=== PATIENT | female | born 1985 | race Caucasian/White ===

== ENCOUNTER 2018-01-19 09:31 | Emergency (ER) | payer OTHER ==
--- NOTE | 2018-01-19 14:53 | OBHP ---
Datetime: 01/19/2018 14:48 IP Adm Impression: , intrauterine IP Admit Plan: Observation/Evaluation; Discharge home Admit Comment, IP Provider: Patient is a @ 25 wks with vaginal spotting after intercourse. N o leaking, no other bleeding, +FM, no ctxns. Previous x 2, otherwise no other antepartum issues, no medical problems, no allergies, no medications except vitamins. On speculum exam, no vag inal bleeding noted. +FHR = 150s mod bhavesh, +accels, no contractions. Chorio and labor ruled out. Nichelle nt discharged out with labor precautions Pelvic Type - PN: Adequate Extremities - PN: Normal Abdomen - PN: Normal Back - PN: Normal Breast - PN: Normal Lungs - PN: Normal Heart - PN: Normal Thyroid - PN: Normal Neurologic - PN: Normal HEENT - PN: Normal General - PN: Normal FHR - Baseline A Provider: 145 Contraction Comments Provider: none Vital Signs Provider: Reviewed; Within Normal Limits IP Chief Complaint: Vaginal bleeding NICHD Accel Fetus A IP Provider: [id number] NICHD Decel Fetus A IP Provider: None Dilatation, Provider: closed Genitourinary Exam: Normal DTRs - PN: Normal
--- NOTE | 2018-01-19 14:53 | OBDCSUM ---
Datetime: 01/19/2018 10:45 Discharged to, Provider: Home Follow up at, Provider: Dr Maria Luz Heredia Instr Activity: Normal activity Disch Instr Diet: Regular Discharge Instructions, Provider: Routine instructions given Discharge Time: 01/19/2018 10:46 Follow up in weeks, Provider: enedina Heredia Referrals: None Contraception discussed, Prov: Yes Discharge Diagnosis Prov Other: vaginal bleeding
[2018-01-19 15:25] VITALS: PULSE 93; RESP 16; TEMP 98.4; O2SAT 100
== END 2018-01-19 11:00 | disposition home or self-care (01) ==
LOC: H.EROB2 09:31 → H.L&D 09:54 → H.EROB2 11:00
DX: O26.852 Spotting complicating pregnancy, second trimester (principal); Z3A.25 25 weeks gestation of pregnancy

== ENCOUNTER 2018-05-09 19:27 | Inpatient (IN) | payer OTHER ==
[2018-05-09 20:02] VITALS: BMI 32.5
[2018-05-09 21:10] VITALS: RESP 20; O2SAT 100
[2018-05-09 21:12] LABS: BASO % 0.3 % (0.0-2.0); EOS % 0.2 % (0.0-4.0); HEMOGLOBIN 12.3 g/dL (12.0-16.0); LYMPH # 1.5 K/uL (1.0-4.3); LYMPH % 13.6 % (20.0-40.0); MEAN CELL VOLUME 90.8 fl (81.0-99.0); MEAN CORPUSCULAR HEMOGLOBIN 30.8 pg (27.0-31.0); MEAN CORPUSCULAR HGB CONC 33.9 g/dL (33.0-37.0); MEAN PLATELET VOLUME 8.7 fl (7.2-11.7); MONO # 0.9 K/uL (0.0-0.8); NEUT # 8.5 K/uL (1.8-7.0); NEUT % 77.9 % (50.0-75.0); NRBC % 0.1 % (0.0-0.0); RBC 3.99 Mil/uL (3.80-5.20); RED CELL DISTRIBUTION WIDTH 13.8 % (11.5-14.5); WHITE BLOOD COUNT 10.9 K/uL (4.8-10.8)
--- NOTE | 2018-05-09 21:22 | OBHP ---
Datetime: 05/09/2018 21:01 IP Adm Impression: Term, intrauterine ; No Active Labor IP Chief Complaint Other: Post EDC IP Adm Impression Other: Induction of labor IP Admit Plan: Admit to unit; Initiate labor induction protocol Admit Comment, IP Provider: 33yo with IUP at 40w6d reporting here today for IOL secondary to po st EDC. Patient reports of occasional mild pelvic contractions but denies VB or LOF. Patient of Dr Saleh with uncomplicated course. GBS- Positive. PMHx: Nil of Note PSHx: None Allergies: NKDA SHx: No Toxic habits. O: Chest: CTA B/L Heart: RRR Abd: Soft, NT bs- present FHR- Category 1 SVE: Asessment: IUP at 40w6d Post EDC for IOL NST ReactivePlan: Admit to LND Cervidil for cervical ripening Penicillin for GBS prophylaxis May have epidural at the onset of labor. Pelvic Type - PN: Adequate Extremities - PN: Normal Abdomen - PN: Normal Back - PN: Normal Breast - PN: Normal Lungs - PN: Normal Heart - PN: Normal Thyroid - PN: Normal Neurologic - PN: Normal HEENT - PN: Normal General - PN: Normal Presentation-Admit: Vertex FHR - Baseline A Provider: 130 Gestation - Est Wks by US: 40.6 EGA AdmitDate IP: 40.6 Vital Signs Provider: Reviewed IP Chief Complaint: Maternal discomfort NICHD Variability Prov Fetus A: Moderate 6-25bpm NICHD Accel Fetus A IP Provider: 15X15 FHR Category Provider Fetus A: Category I NICHD Decel Fetus A IP Provider: None Genitourinary Exam: Normal DTRs - PN: Normal
[2018-05-10] MEDS: Lactated Ringer's 1,000 ML IV SCH ×4 (13:30→21:05)
[2018-05-10] MEDS ORDERED: Penicillin G 5 Million Unit Vial IVPB ONE (15:10)
[2018-05-10] MEDS ORDERED: Oxytocin 30 UNIT 30 UNITS/500 ML BAG IV ONE ×2 (17:07→18:56)
[2018-05-10] MEDS ORDERED: OXYTOCIN/0.9 % NS 20 UNIT/1,000 ML BAG IV SCH (17:15)
[2018-05-10] MEDS ORDERED: Lactated Ringer's 1,000 ML IV SCH (18:30)
[2018-05-10] MEDS ORDERED: Fentanyl/Bupivacaine HCl 250 ML EPI ONE (20:00)
[2018-05-10] MEDS ORDERED: Lidocaine 1% MPF (30 ml) Inj ONE (21:47)
--- NOTE | 2018-05-10 22:51 | OBDS ---
DELIVERY PERSONNEL Delivery Doctor: Brianne Casey MD Trust Clerk: Sujata Conti RN MATERNAL INFORMATION Delivery Anesthesia: Epidural Medications in Delivery: Lidocaine 30ml Placenta Cultured: No Maternal Complications: None Provider Comments: Uncomplicated spontaneous vaginal delivery od a viable female with BW of 3 300g and scores of 9 and 9.The baby was having non reassuring status and a kiwi vacuum wa s applied with a full dilatation,with a station of +4. Baby was delivered after 2 pulls with contract ions without a pop. Baby was delivered over a 2nd degree laceration which was repaired with vicryl sutures under epidu ral and local anesthesia and with good cosmesis. EBL- 350mls Patient tolerated the procedure well. LABOR SUMMARY EDC: 05/03/2018 00:00 No. Babies in Womb: 1 Attempted: No Labor Anesthesia: Epidural LABOR INFORMATION Reason for Induction: Postterm Cervical Ripening Agents: Cytotec 50 mcg PO given as ordered. Oxytocin: N/A Group B Beta Strep: Positive Antibiotics # of Doses: 2 Antibiotics Time of Last Dose: 1944 Steroids Given: None Reason Steroids Not Administered: Not Applicable MEMBRANES Membranes Rupture Method: Artificial Rupture of Membranes: 05/10/2018 17:29 Length of Rupture (hrs): 4.07 Amniotic Fluid Color: Clear Amniotic Fluid Amount: Moderate Amniotic Fluid Odor: Normal STAGES OF LABOR Stage 3 hrs: 0 Stage 3 min: 6 VAGINAL DELIVERY Episiotomy: None Laceration Extension: Second Degree Laceration Type: Perineal Laceration Repair Note: Baby was delivered over a 2nd degree laceration which was repaired with vicr yl sutures under epidural and local anesthesia and with good cosmesis BABY A INFORMATION Infant Delivery Date/Time: 05/10/2018 21:33 Method of Delivery: Vaginal Born in Route : No : N/A Forceps: N/A Vacuum Extraction: Successful Shoulder Dystocia : No SHOULDER DYSTOCIA BABY A Delivery Date/Time: 05/10/2018 21:33 PRESENTATION/POSITION BABY A Presentation: Cephalic Cephalic Presentation: Left occipital posterior Breech Presentation: N/A PLACENTA INFORMATION BABY A Placenta Delivery Time : 05/10/2018 21:39 Placenta Method of Delivery: Spontaneous Placenta Status: Delivered SCORES BABY A Heart Rate 1 min: >100 bpm Resp Effort 1 min: Good Cry Reflex Irritability 1 min: Cough or Sneeze or Pulls Away Muscle Tone 1 min: Active Motion Color 1 min: Body [place], Extremities Blue Resuscitation Effort 1 min: N/A SCORE 1 MIN: 9 Heart Rate 5 min: >100 bpm Resp Effort 5 min: Good Cry Reflex Irritability 5 min: Cough or Sneeze or Pulls Away Muscle Tone 5 min: Active Motion Color 5 min: Body [place], Extremities Blue Resuscitation Effort 5 min: N/A SCORE 5 MIN: 9 INFORMATION BABY A Gestational Age at Delivery: 41.0 Gestational Status: Post-term Outcome : Liveborn Infant Condition : Stable Sex: Female IDENTIFICATION/MEDS BABY A ID Band Number: [id number] ID Band Location: Left Leg; Left Arm WEIGHT/LENGTH BABY A Infant Birthweight (gms): 3300 Weight (lb): 7 Weight (oz): 4 CORD INFORMATION BABY A No. Cord Vessels: 3 Nuchal Cord : N/A Nuchal Cord Other: n/a True Knot: n/a Cord pH Baby Arterial: n/a Infant Cord pH Baby Venous: n/a Cord Blood Taken: Yes Banking/Donate Info: n/a Suction: Mouth; Nose
[2018-05-10] MEDS ORDERED: Benzocaine/Menthol SPRAY TOP PRN (23:08)
[2018-05-10] MEDS ORDERED: Oxycodone/Acetaminophen 5/325 mg Tab PO PRN (23:08)
[2018-05-11] MEDS ORDERED: Oxycodone/Acetaminophen 5/325 mg Tab PO PRN (01:35)
[2018-05-11] MEDS ORDERED: Benzocaine/Menthol SPRAY TOP PRN (01:35)
[2018-05-11 06:24] LABS: BASO % 0.1 % (0.0-2.0); HEMOGLOBIN 11.6 g/dL (12.0-16.0); LYMPH % 6.9 % (20.0-40.0); MEAN CELL VOLUME 90.2 fl (81.0-99.0); MEAN CORPUSCULAR HEMOGLOBIN 31.3 pg (27.0-31.0); MEAN CORPUSCULAR HGB CONC 34.7 g/dL (33.0-37.0); MEAN PLATELET VOLUME 8.6 fl (7.2-11.7); MONO % 6.8 % (0.0-10.0); NEUT # 12.6 K/uL (1.8-7.0); NEUT % 86.2 % (50.0-75.0); PLATELET COUNT 242 K/uL (130-400); RED CELL DISTRIBUTION WIDTH 13.7 % (11.5-14.5); WHITE BLOOD COUNT 14.6 K/uL (4.8-10.8)
--- NOTE | 2018-05-11 07:37 | OBPN ---
Datetime: 05/09/2018 21:01 IP Progress Impression: Normal progression of labor; Reassuring heart rate IP Procedures: Sterile Vag Exam IP Progress Plan: Continue present management; Antibiotic therapy Membranes, Provider: Intact FHR - Baseline A Provider: 130 Gestation - Est Wks by US: 40.6 Presentation-Admit: Vertex IP Progress Note Comment: Sterile VE Reassuring FHR Normal progression YBecerra PGY 2 Attending Note: Patient was discussed with resident and I agree with the above assessment. Vital Signs Provider: Reviewed NICHD Accel Fetus A IP Provider: 15X15 FHR Category Provider Fetus A: Category I NICHD Variability Prov Fetus A: Moderate 6-25bpm Dilatation, Provider: 3-4 Effacement, Provider: 70 Station, Provider: -2 NICHD Decel Fetus A IP Provider: None Datetime: 01/19/2018 14:48 Contraction Comments Provider: none
[2018-05-11 09:28] LABS: BASOPHIL 1 % (0-2); HYPOCHROMIC SLIGHT; LYMPHOCYTE 13 % (20-50); MONOCYTE 10 % (0-10); NEUTROPHIL 76 % (42-75); PLATELET ESTIMATE NORMAL (NORMAL); TOTAL CELLS COUNTED 100
[2018-05-11 09:29] LABS: OVALOCYTES SLIGHT; SCHISTOCYTES SLIGHT; TEARDROP CELLS SLIGHT; TOXIC GRANULATION PRESENT
--- NOTE | 2018-05-11 12:19 | OBPPN ---
Datetime: 05/11/2018 11:50 PP Pain Prov: Within normal limits PP Nausea Prov: Denies PP Flatus Prov: Yes PP Breasts Prov: Normal PP Heart Prov: Normal PP Lungs Prov: Normal PP Abdomen/Uterus Prov: Normal PP Lochia Prov: Normal PP Vulva/Perineum Prov: Normal PP CVA Tenderness Prov: Normal PP Extremities Prov: Normal PP Comments Phys Exam Prov: Fundus firm under umbilicus PP Impression Prov: Normal progression PP Plan Prov: Continue present management PP Progress Note Prov: Patient denies CP, no SOB, no N/V, tolerating PO diet, ambulating/voiding wel l, mild lochia A/P PPD #1 1. continue orders 2. Percocet/Motrin prn pain 3. Encourage ambulation and IP PP Procedures: None Vital Signs Provider PP: Reviewed; Within Normal Limits
--- NOTE | 2018-05-12 11:07 | OBPPN ---
Datetime: 05/12/2018 11:04 PP Pain Prov: Within normal limits PP Nausea Prov: Denies PP Flatus Prov: Yes PP Breasts Prov: Normal PP Heart Prov: Normal PP Lungs Prov: Normal PP Abdomen/Uterus Prov: Normal PP Extremities Prov: Normal PP Progress Prov: Normal PP Impression Prov: Normal progression PP Plan Prov: Discharge PP Progress Note Prov: s: no c/o. i: s/p doing well p: d/c hme sitz bath d/w pt continue pnv otc motrin f/u 4-6wks prn. IP PP Procedures: None
--- NOTE | 2018-05-12 11:09 | OBDCSUM ---
Datetime: 05/12/2018 11:06 Discharged to, Provider: Home Follow up at, Provider: dr wilkins Disch Instr Activity: Normal activity Disch Instr Diet: Regular Discharge Instructions, Provider: Routine instructions given Discharge Diagnosis, Provider: Postterm Delivery Discharge Time: 05/12/2018 11:06 Follow up in weeks, Provider: 4-6wks/prn Disch Activity Restrictions: No sexual activity; Nothing in vagina - [place], tampons, douche Discharge Comment, Provider: anup bath d/w pt continue pnv otc motrin Contraception after Delivery: Undecided
[2018-05-12 18:52] VITALS: BP 114/72; PULSE 72; TEMP 98.2
== END 2018-05-12 14:50 | disposition home or self-care (01) | DRG 775 ==
LOC: H.EROB2 19:27 → H.L&D 20:34 → H.OB/GYN 05-11 00:10
PROVIDERS: ADMIT Obstetrics & Gynecology; ATTEND Obstetrics & Gynecology
PROC: 10D07Z6 Extraction of Products of Conception, Vacuum, Via Natural or Artificial Opening (ICD-10-PCS; principal; 2018-05-10)
PROC: 0KQM0ZZ Repair Perineum Muscle, Open Approach (ICD-10-PCS; 2018-05-10)
PROC: 10907ZC Drainage of Amniotic Fluid, Therapeutic from Products of Conception, Via Natural or Artificial Opening (ICD-10-PCS; 2018-05-10)
DX: O48.0 Post-term pregnancy (principal); O70.1 Second degree perineal laceration during delivery; O99.820 Streptococcus B carrier state complicating pregnancy; Z37.0 Single live birth; Z3A.40 40 weeks gestation of pregnancy